=== PATIENT | female | born 1950 | race Caucasian/White ===

== ENCOUNTER → 2024-07-29 12:26 | Outpatient (CLI) | payer MEDICARE, SELFPAY ==
--- NOTE | 2024-07-29 12:28 | DI.CT.S_ITS ---
PROCEDURE: CT CHEST HIGH RESOLUTION INDICATIONS: ild TECHNIQUE: Noncontrast 1.0 and 5.0 mm thick contiguous axial sections from the pulmonary apex to the posterior costophrenic angles, with 7 mm thick coronal and sagittal MIP reformats. 1 mm thick dynamic expiratory images acquired through the upper, mid, and lower lungs. 1.0 mm thick axial sections acquired from the armen to the posterior costophrenic angles in the prone end-inspiration position. For radiation dose reduction, the following was used: automated exposure control, adjustment of mA and/or kV according to patient size. COMPARISON: [facility], CT, CT CHEST ABDOMEN PELVIS WITH CONTRAST, 04/12/2024, 13:45. [facility], CT, CT CHEST WITHOUT CONTRAST, 11/27/2021, 11:21. FINDINGS: Image quality: Diagnostic Lungs and pleura: Peripheral reticulation greatest in the left lower lobe, with ground-glass opacities. No honeycombing. Stable right lower lobe pulmonary nodule since 2021. No pleural effusions. No dense airspace disease. Mild air trapping is seen on expiratory views, probably within physiologic limits. No changes on prone imaging Mediastinum, heart, and esophagus: Mildly distended main pulmonary artery measuring 3.6 cm. There are prominent mediastinal lymph nodes, better assessed on recent contrast enhanced imaging. Annular cardiac calcifications. Chest wall and thyroid: Postsurgical changes of the breasts. Upper abdomen: Possible renal cysts are partially seen. No gross abnormality on these limited non-contrast images Bones: There are degenerative changes. IMPRESSION: [id number] findings of interstitial lung disease, with ground-glass opacities and background reticulation. Findings may represent NSIP subtype. In the setting of ILD, consider future followup to assess for progression and any pulmonary nodules. (ATS 2018 HRCT classification: Indeterminate for UIP) Mildly distended main pulmonary trunk suggestive of chronically elevated pulmonary pressures Other findings above. Dictated by: Henry Cerna M.D. on 07/29/2024 at 15:51 Approved by: Henry Cerna M.D. on 07/29/2024 at 15:56
== END ==
LOC: CT 12:27
PROVIDERS: PCP Nurse Practitioner; Referring Provider Internal Medicine Critical Care Medicine; Visit Provider Internal Medicine Critical Care Medicine
DX: J84.9 Interstitial pulmonary disease, unspecified (principal)
CPT/HCPCS: 71250

== ENCOUNTER → 2024-08-05 11:41 | Outpatient (CLI) | payer MEDICARE, SELFPAY | LOC: RESP 11:41 | PROVIDERS: PCP Nurse Practitioner; Referring Provider Internal Medicine Critical Care Medicine; Visit Provider Internal Medicine Critical Care Medicine | DX: R06.02 Shortness of breath (principal); R94.2 Abnormal results of pulmonary function studies; R05.3 Chronic cough; J84.9 Interstitial pulmonary disease, unspecified | CPT/HCPCS: 94060; 94726; 94729 ==

== ENCOUNTER → 2024-11-02 11:09 | Outpatient (CLI) | payer MEDICARE, SELFPAY ==
--- NOTE | 2024-11-02 11:11 | DI.CT.S_ITS ---
PROCEDURE: CT CHEST HIGH RESOLUTION INDICATIONS: ILD TECHNIQUE: Noncontrast 1.0 and 5.0 mm thick contiguous axial sections from the pulmonary apex to the posterior costophrenic angles, with 7 mm thick coronal and sagittal MIP reformats. 1 mm thick dynamic expiratory images acquired through the upper, mid, and lower lungs. 1.0 mm thick axial sections acquired from the armen to the posterior costophrenic angles in the prone end-inspiration position. For radiation dose reduction, the following was used: automated exposure control, adjustment of mA and/or kV according to patient size. COMPARISON: [facility], CT, CT CHEST HIGH RESOLUTION, 07/29/2024, 12:29. FINDINGS: Image quality: Diagnostic. Lower Neck: No enlarged lymph nodes. Thyroid: No thyroid nodules which require sonographic follow up, per consensus guidelines. Axillae: No enlarged lymph nodes. Chest Wall: Right mastectomy. Small left back subcutaneous lipoma. Bones: No suspicious osseous lesion. Right shoulder anchors. Lungs and Pleura: No pneumothorax. Trace pleural effusions. There is diffuse peripheral reticular thickening, moderate to severe and increased compared to chest CT 07/29/2024. There is mild to moderate scattered ground-glass opacity likely superimposed. There are a few air bronchograms at the lower lobes. Right lower lobe pulmonary nodule measuring 0.6 cm, (6/190), unchanged. No honeycombing. The central airways are clear. No air trapping appreciated. Heart: Heart size is prominent. No pericardial effusion. Thoracic Vessels: The aorta and pulmonary arteries demonstrate normal size. Mediastinum and Casandra: No enlarged lymph nodes. Somewhat shotty appearing mediastinal lymph nodes. Esophagus: No wall thickening. No hiatal hernia. Upper Abdomen: Visualized upper abdomen solid organs and bowel loops appear normal. Post cholecystectomy. IMPRESSION: 1. Acute mtto-gl-nahpwweg scattered ground-glass opacity. 2. Moderate to severe peripheral reticular thickening is increased. 3. Trace pleural effusions. 4. Right lower lobe pulmonary nodule measuring 0.6 cm is unchanged. Findings most consistent with interstitial lung disease. The worsening peripheral reticular thickening and acute ground-glass opacity could be due to worsening interstitial lung disease or superimposed pulmonary edema or other infectious/inflammatory process. CT high-resolution chest in 3-6 months would be helpful. Dictated by: Shabbir Carter M.D. on 11/02/2024 at 14:03 Approved by: Shabbir Carter M.D. on 11/02/2024 at 14:19
== END ==
LOC: CT 11:10
PROVIDERS: PCP Nurse Practitioner; Referring Provider Internal Medicine Critical Care Medicine; Visit Provider Internal Medicine Critical Care Medicine
DX: J84.9 Interstitial pulmonary disease, unspecified (principal); R91.1 Solitary pulmonary nodule
CPT/HCPCS: 71250

== ENCOUNTER → 2024-11-19 15:11 | Outpatient (CLI) | payer MEDICARE, SELFPAY ==
[2024-11-19 15:48] LABS: Add Manual Diff / Slide Review NO; Basophils Absolute Auto 100 /uL (0-100); Basophils Percent Auto 0.7 % (0-2); Eosinophils Absolute Auto 200 /uL (0-450); Hematocrit 32.7 % (36-46); Hemoglobin 10.3 g/dL (12.0-16.0); Lymphocytes Absolute Auto 900 /uL (1100-4500); Lymphocytes Percent Auto 4.6 % (25-40); Mean Corpuscular HGB Conc 31.6 % (30-36); Mean Corpuscular Hemoglobin 27.9 PG (26-34); Mean Corpuscular Volume 88.4 fL (80-100); Monocytes Absolute Auto 1200 /uL (0-900); Monocytes Percent Auto 6.7 % (3-14); Neutrophils Absolute Auto 16400 /uL (1500-7000); Platelet Count 504 X10^3/uL (150-400); Red Cell Distribution Width 16.6 % (11.6-14.8); White Blood Cell Count 18.8 X10^3/uL (4.5-11.0)
[2024-11-19 16:42] LABS: Alanine Aminotransferase 37 IU/L (<35); Albumin 3.5 g/dL (3.5-5.0); Albumin Globulin Ratio 1.2 (1.0-2.8); Alkaline Phosphatase 121 U/L (38-126); Aspartate Aminotransferase 43 IU/L (14-36); BUN Creatinine Ratio 16.4 (6-22); Bilirubin Total 0.5 mg/dL (0.2-1.3); Blood Urea Nitrogen 22 mg/dL (7-17); Calcium 9.2 mg/dL (8.4-10.2); Carbon Dioxide 18 mmol/L (22-32); Chloride 98 mmol/L (98-107); Estimated Glomerular Filt Rate 41 mL/min (>60); Globulin 2.9 g/dL (1.7-4.1); Glucose 258 mg/dL (80-110); HEMOLYSIS < 15 (0-50); Rheumatoid Factor 12.6 IU/mL (<12.0); Sodium 132 mmol/L (137-145); Total Protein 6.4 g/dL (6.3-8.2)
[2024-11-19 16:55] LABS: C-Reactive Protein Quant 21.1 mg/dL (<1.0)
[2024-11-22 15:08] LABS: CCP Antibodies IgG/IgA 3 units (0-19)
[2024-11-22 19:07] LABS: QuantiFERON Mitogen Value 5.75 IU/mL (.); QuantiFERON Nil Value 0.05 IU/mL (.); QuantiFERON TB Gold Plus Negative (Negative); QuantiFERON TB1 Ag Value 0.06 IU/mL (.); QuantiFERON TB2 Ag Value 0.06 IU/mL (.)
[2024-11-23 09:09] LABS: Angiotensin Converting Enzyme 45 U/L (14-82)
[2024-11-23 12:12] LABS: ANA Screen, IFA Negative (.)
[2024-11-23 13:09] LABS: Scleroderma 70 Antibody < 0.2 AI (0.0-0.9)
[2024-11-25 13:11] LABS: Antimyeloperoxidase Antibodies <0.2 units (0.0-0.9); Antiproteinase 3 Antibodies <0.2 units (0.0-0.9); Cytoplasmic C-ANCA <1:20 titer (Neg:<1:20); Perinuclear P-ANCA <1:20 titer (Neg:<1:20)
[2024-11-26 06:07] LABS: Aureobasidium pullulans IgG Negative (Negative); Micropolyspora faeni IgG Negative (Negative); Pigeon Serum IgG Negative (Negative); Thermoactinomyces sacchari IgG Negative (Negative); Thermoactinomyces vulgaris IgG Negative (Negative)
== END ==
PROVIDERS: Referring Provider Internal Medicine Critical Care Medicine; Visit Provider Internal Medicine Critical Care Medicine
DX: J84.9 Interstitial pulmonary disease, unspecified (principal); R09.02 Hypoxemia
CPT/HCPCS: 36415; 80053; 82164; 85025; 86038; 86140; 86200; 86235; 86256; 86331; 86430; 86480; 86602; 86606; 86609; 86671; 94618; 99215

== ENCOUNTER 2024-12-14 10:47 | Day surgery (SDC) | payer MEDICARE, SELFPAY ==
[2024-12-13 09:59] VITALS: BMI 20.1
--- NOTE | 2024-12-14 | PATH_ITS ---
[facility] Accession Number: [id number] No. of containers..01 Tissue . 01 Material submitted: . lobe - RIGHT LUNG LOWER LOBE . 01 Diagnosis: RIGHT LUNG LOWER LOBE, TRANSBRONCHIAL BIOPSY: Predominantly bronchial epithelium and stroma present. No significant alveolar tissue present to evaluate for interstitial lung disease; therefore, specimen is overall suboptimal for evaluation. . Note: Initial and deeper levels have been examined. MRV 12/21/2024 1729 Local . 01 Electronically signed: . Nola Tony MD, Pathologist NPI- [id number] . 01 Gross description: . RIGHT LUNG LOWER LOBE: Received in formalin are multiple fragment(s) of hermosillo, soft tissue measuring 0.1 x 0.1 x 0.1 cm to 0.2 x 0.1 x 0.1 cm submitted entirely in 1 cassette(s) /TANVI 12/15/2024 2338 Local . 01 Pathologist provided ICD-10: J84.9 . 01 CPT . 455886 Specimen Comment: A courtesy copy of this report has been sent to [facility] Pathology Performed at: [address] [address], [place], [place] [id number] MD Zeke Holloway MD Phone: [phone]
[2024-12-14] MEDS: LACTATED RINGERS 1,000 ML 42 ML IV (12:46)
[2024-12-14 12:50] VITALS: BP 190/81; PULSE 72; RESP 18; TEMP 36.8; O2SAT 100
--- NOTE | 2024-12-14 13:42 | SUR.OPER ---
Supine on padded OR bed, head on pillow, arms secured on padded arm boards at <90 degrees abduction, legs uncrossed, safety belt at thigh.
--- NOTE | 2024-12-14 13:55 | PATH_ITS ---
Note [facility] Accession Number: [id number] TESTS RESULT FLAG UNITS REF RANGE LAB Clinician Provided Cytology Information No. of containers..01 Other (Miscellaneous) Source: BRONCHIAL WASHINGS DIAGNOSIS: BRONCHIAL WASHINGS NEGATIVE FOR MALIGNANT CELLS. BENIGN BRONCHIAL EPITHELIAL CELLS AND RARE MACROPHAGES PRESENT. THIS INTERPRETATION INCLUDES EVALUATION OF A CELL BLOCK. Pathologist ICD10: J84.9 Signed out by: Nola Tony MD, Pathologist NPI- [id number] Performed by: Enrike Carroll, Staging Technician ([facility]) Gross description: 15 CC, RED, CLOUDY RECEIVED: FRESH IN WHITE CAP CONTAINER.VO /VDU 12/15/2024 1207 Local FLAG LEGEND: L-Low Normal,H-High Normal,LL-Alert Low,HH-Alert High <-Panic Low,>-Panic High,A-Abnormal,AA-Critical Abnormal Performed at: 01 =Z [facility] [address] [facility], [place] [address] Zeke Holloway MD, Performed at: [address] [facility] [address] [facility], [place], [place] [id number] MD Zeke Holloway MD Phone: [phone]
--- NOTE | 2024-12-14 14:00 | DI.RAD.S_ITS ---
PROCEDURE: XR CHEST 1V INDICATIONS: bronchoscopy TECHNIQUE: One view of the chest was acquired. COMPARISON: [facility], CR, XR CHEST 1 VIEW, 11/06/2024, 15:00. [facility], CR, XR CHEST 2 VIEWS, 11/29/2024, 12:06. FINDINGS: Surgical changes and devices: Right humeral surgical anchors. Lungs and pleura: Chronic interstitial markings are redemonstrated which appear more pronounced in the right mid lung field and left lower lung field compared to prior.. No pleural effusions or pneumothorax. Mildly enlarged, stable Bones and chest wall: No suspicious bony lesions. Overlying soft tissues appear unremarkable. IMPRESSION: Chronic interstitial markings with possible superimposed infection or edema. No pneumothorax is seen Dictated by: Ignacio Grimes M.D. on 12/14/2024 at 14:35 Approved by: Ignacio Grimes M.D. on 12/14/2024 at 14:37
[2024-12-14 14:05] VITALS: BP 130/55; PULSE 79; RESP 19; TEMP 36.7; O2SAT 99
[2024-12-14 14:10] VITALS: BP 131/55; PULSE 124; RESP 17; O2SAT 98
[2024-12-14 14:15] VITALS: BP 139/56; PULSE 77; RESP 14; O2SAT 98
[2024-12-14 14:20] VITALS: BP 143/62; PULSE 74; RESP 13; O2SAT 96
[2024-12-14 14:32] VITALS: BP 146/66; PULSE 71; RESP 17; TEMP 36.6; O2SAT 96
[2024-12-14 14:33] LABS: Body Fluid Appearance CLOUDY; Body Fluid Clotted? NO CLOTS PRESENT; Body Fluid Color RED
[2024-12-14 14:43] LABS: Body Fluid Red Blood Cells 3661 /uL; Body Fluid Tot Nucleated Cells 116 /uL
[2024-12-14 14:49] LABS: Lymphocytes Body Fluid 40 %; MESO/MACRO/MONO Body Fluid 40 %; Neutrophils Body Fluid 20 %
== END 2024-12-14 15:29 | disposition home or self-care (01) ==
PROVIDERS: Referring Provider Internal Medicine Critical Care Medicine; Visit Provider Internal Medicine Critical Care Medicine
PROC: 0BJ08ZZ Inspection of Tracheobronchial Tree, Via Natural or Artificial Opening Endoscopic (ICD-10-PCS; CPT 31622; principal; 2024-12-14 13:00)
DX: J84.9 Interstitial pulmonary disease, unspecified (principal); Z87.891 Personal history of nicotine dependence
CPT/HCPCS: 31625; 31624; 71045; 82962; 89051; J2704

== ENCOUNTER → 2025-02-09 12:54 | Outpatient (CLI) | payer MEDICARE, SELFPAY ==
--- NOTE | 2025-02-09 12:55 | DI.CT.S_ITS ---
PROCEDURE: CT CHEST HIGH RESOLUTION INDICATIONS: ILD TECHNIQUE: Noncontrast 1.0 and 5.0 mm thick contiguous axial sections from the pulmonary apex to the posterior costophrenic angles, with 7 mm thick coronal and sagittal MIP reformats. 1 mm thick dynamic expiratory images acquired through the upper, mid, and lower lungs. 1.0 mm thick axial sections acquired from the armen to the posterior costophrenic angles in the prone end-inspiration position. For radiation dose reduction, the following was used: automated exposure control, adjustment of mA and/or kV according to patient size. COMPARISON: [facility], CT, CT CHEST HIGH RESOLUTION, 07/29/2024, 12:29. [facility], CT, CT CHEST ABDOMEN PELVIS WITH CONTRAST, 07/31/2023, 14:58. [facility], CT, CT CHEST HIGH RESOLUTION, 11/02/2024, 11:55. FINDINGS: Image quality: Diagnostic. Lungs and Pleura: Bilateral peripheral reticulation, mid and lower lung traction bronchiectasis, and peripheral lower lobe honeycombing is present. Mild ground- glass opacity anteriorly in the lingula. There has been clearance of scattered bilateral ground-glass opacities seen previously. 6 mm solid nodule laterally in the right lower lobe, 3/196, stable. No significant air trapping on exhalation images. Resolution of small bilateral pleural effusions. No visible pleural plaquing. No pleural calcification. Lower Neck: Several tiny supraclavicular lymph nodes bilaterally. Thyroid: Normal CT appearance. Axillae: No enlarged lymph nodes. Chest Wall: Changes of right mastectomy. Bones: No suspicious bone lesion. Mild degenerative changes in the spine. Thoracic Vessels: Normal size thoracic aorta. Enlarged main pulmonary artery at 3.7 cm diameter. Mediastinum and Casandra: Enlarged prevascular and right paratracheal lymph nodes, similar compared to prior. No new mediastinal or hilar adenopathy. Heart: Heart size at the upper limits of normal. Very small pericardial effusion. Esophagus: No wall thickening. No hiatal hernia. Upper Abdomen: Cholecystectomy. Partially imaged upper pole renal cysts bilaterally. Visible portions of upper abdominal organs are otherwise normal. IMPRESSION: Clearance of prior acute findings including diffuse ground-glass opacities and small effusions. There is a chronic background of interstitial lung disease with pattern diagnostic of usual interstitial pneumonia. This has progressed since 07/29/24. Stable 6 mm pulmonary nodule right lower lobe, benign given longstanding presence. Enlarged main pulmonary artery suggesting pulmonary artery hypertension. Dictated by: Erin May M.D. on 02/10/2025 at 9:38 Approved by: Erin May M.D. on 02/10/2025 at 9:52
== END ==
LOC: CT 12:54
PROVIDERS: Referring Provider Internal Medicine Critical Care Medicine; Visit Provider Internal Medicine Critical Care Medicine
DX: J84.9 Interstitial pulmonary disease, unspecified (principal); R91.1 Solitary pulmonary nodule; N28.1 Cyst of kidney, acquired; Z90.49 Acquired absence of other specified parts of digestive tract
CPT/HCPCS: 71250

== ENCOUNTER → 2025-03-29 14:04 | Outpatient (CLI) | payer MEDICARE, SELFPAY ==
[2025-03-29 14:36] LABS: Add Manual Diff / Slide Review NO; Hematocrit 40.7 % (36-46); Hemoglobin 13.4 g/dL (12.0-16.0); Lymphocytes Absolute Auto 800 /uL (1100-4500); Mean Corpuscular HGB Conc 32.8 % (30-36); Mean Corpuscular Hemoglobin 31.4 PG (26-34); Mean Corpuscular Volume 95.8 fL (80-100); Platelet Count 228 X10^3/uL (150-400)
[2025-03-29 15:13] LABS: Alanine Aminotransferase 25 IU/L (<35); Albumin 4.5 g/dL (3.5-5.0); Albumin Globulin Ratio 1.6 (1.0-2.8); Alkaline Phosphatase 62 U/L (38-126); Blood Urea Nitrogen 25 mg/dL (7-17); Calcium 9.2 mg/dL (8.4-10.2); Carbon Dioxide 23 mmol/L (22-32); Chloride 107 mmol/L (98-107); Estimated Glomerular Filt Rate 55 mL/min (>60); Globulin 2.9 g/dL (1.7-4.1); Glucose 142 mg/dL (70-99); HEMOLYSIS < 15 (0-50); Potassium 3.6 mmol/L (3.4-5.1); Sodium 142 mmol/L (137-145); Total Protein 7.4 g/dL (6.3-8.2)
== END ==
PROVIDERS: Referring Provider Internal Medicine Critical Care Medicine; Visit Provider Internal Medicine Critical Care Medicine
DX: J84.9 Interstitial pulmonary disease, unspecified (principal)
CPT/HCPCS: 36415; 80053; 81335; 82657; 85025

== ENCOUNTER → 2025-04-14 13:32 | Outpatient (CLI) | payer MEDICARE, SELFPAY | PROVIDERS: Referring Provider Internal Medicine Critical Care Medicine; Visit Provider Internal Medicine Critical Care Medicine | DX: R09.02 Hypoxemia (principal); J84.9 Interstitial pulmonary disease, unspecified; R94.2 Abnormal results of pulmonary function studies | CPT/HCPCS: 94060; 94726; 94729 ==